=== PATIENT | female | born 1980 | race Caucasian/White ===

== ENCOUNTER 2022-07-28 22:40 | Emergency (ER) | payer OTHER, MEDICAID ==
[~2022-07-28] VITALS: Ht 180.3 cm; Wt 66.7 kg
[2022-07-28 23:07] VITALS: BP_SYST 122
[2022-07-29] MEDS ORDERED: IBUPROFEN 600 MG TABLET PO ONE
[2022-07-29] MEDS ORDERED: ACETAMINOPHEN 500 MG TABLET PO ONE
[2022-07-29] MEDS ORDERED: IBUP-1969 PO (01:25)
[2022-07-29] MEDS ORDERED: ACET-2634 PO (01:25)
[2022-07-29 01:44] VITALS: BP_SYST 128
== END 2022-07-29 01:44 | disposition home or self-care (01) ==
LOC: SED 22:40
DX: S16.1XXA Strain of muscle, fascia and tendon at neck level, initial encounter (principal); M25.562 Pain in left knee; M25.572 Pain in left ankle and joints of left foot; Z79.899 Other long term (current) drug therapy; V89.2XXA Person injured in unspecified motor-vehicle accident, traffic, initial encounter; Y93.89 Activity, other specified; Y92.89 Other specified places as the place of occurrence of the external cause; Y99.8 Other external cause status
CPT/HCPCS: 73564; 81025; 99284